=== PATIENT | female | born 1960 | race Caucasian/White ===

== ENCOUNTER 2017-07-21 18:40 | Emergency (ER) | payer OTHER ==
--- NOTE | 2017-07-21 19:09 | PDOC ---
History of Present Illness - General History Source: Patient Exam Limitations: No Limitations - History of Present Illness Initial Comments: 07/21/17 20:45 The patient is a 57 year old female, with no significant past medical history, who presents to the emergency department s/p mechanical fall, edema to the right foot. The patient reports sliding on a manhole and her right foot inverted. She reports she was able to ambulate post fall, however, with difficulty. She reports taking Advil and using ice on her injury. She denies recent fevers, chills, headache or dizziness. She denies recent nausea, vomit, diarrhea or constipation. She denies recent dysuria, frequency, urgency or hematuria. She denies recent chest pain or shortness of breath. Allergies: NKA <Tiara Cutler - Last Filed: 07/21/17 20:45> <Marlene Gomez - Last Filed: 07/22/17 03:33> - General Chief Complaint: Injury Stated Complaint: RIGHT ANKLE/FOOT PAIN Time Seen by Provider: 07/21/17 19:08 Past History <Tiara Cutler - Last Filed: 07/21/17 20:45> <Marlene Gomez - Last Filed: 07/22/17 03:33> - Past Medical History Allergies/Adverse Reactions: Allergies Allergy/AdvReac Type Severity Reaction Status Date / Time No Known Allergies Allergy Verified 07/21/17 18:58 Home Medications: Ambulatory Orders Fluoxetine HCl 40 mg PO DAILY 07/21/17 Folic Acid 1 mg PO DAILY 07/21/17 Ibuprofen [Advil -] 400 mg PO ONCE 07/21/17 Review of Systems - Review of Systems Able to Perform ROS?: Yes Comments:: 07/21/17 20:45 GENERAL/CONSTITUTIONAL: No fever or chills. No weakness. HEAD, EYES, EARS, NOSE AND THROAT: No change in vision. No ear pain or discharge. No sore throat. CARDIOVASCULAR: No chest pain or shortness of breath. RESPIRATORY: No cough, wheezing, or hemoptysis. GASTROINTESTINAL: No nausea, vomiting, diarrhea or constipation. GENITOURINARY: No dysuria, frequency, or change in urination. MUSCULOSKELETAL: +Right foot pain and edema. No joint swelling or pain. No neck or back pain. SKIN: No rash NEUROLOGIC: No headache, vertigo, loss of consciousness, or change in strength/ sensation. ENDOCRINE: No increased thirst. No abnormal weight change. HEMATOLOGIC/LYMPHATIC: No anemia, easy bleeding, or history of blood clots. ALLERGIC/IMMUNOLOGIC: No hives or skin allergy. All Other Systems: Reviewed and Negative <Tiara Cutler - Last Filed: 07/21/17 20:45> *Physical Exam - Vital Signs Last Vital Signs Temp Pulse Resp BP Pulse Ox 99.1 F 75 15 111/75 96 07/21/17 18:57 07/21/17 18:57 07/21/17 18:57 07/21/17 18:57 07/21/17 18:57 - Physical Exam Comments: 07/21/17 20:47 GENERAL: Awake, alert, and fully oriented, in no acute distress HEAD: No signs of trauma EYES: PERRLA, EOMI, sclera anicteric, conjunctiva clear ENT: Auricles normal inspection, hearing grossly normal, nares patent, oropharynx clear without exudates. Moist mucosa NECK: Normal ROM, supple, no lymphadenopathy, JVD, or masses LUNGS: Breath sounds equal, clear to auscultation bilaterally. No wheezes, and no crackles HEART: Regular rate and rhythm, normal S1 and S2, no murmurs, rubs or gallops ABDOMEN: Soft, nontender, normoactive bowel sounds. No guarding, no rebound. No masses EXTREMITIES: +Edema to the lateral aspect medial to the distal fibula. No clubbing or cyanosis. No cords or erythema. NEUROLOGICAL: Cranial nerves II through XII grossly intact. Normal speech, normal gait SKIN: Warm, Dry, normal turgor, no rashes or lesions noted. <Tiara Cutler - Last Filed: 07/21/17 20:45> ED Treatment Course - Medications Given in the ED: ED Medications Discontinued Medications Generic Name Dose Route Start Last Admin Trade Name Destiny PRN Reason Stop Dose Admin Ibuprofen 600 mg 07/21/17 19:56 07/21/17 20:15 Motrin - PO 07/21/17 19:57 600 mg ONCE ONE Administration <Tiara Cutler - Last Filed: 07/21/17 20:45> Medical Decision Making - Medical Decision Making 07/21/17 22:26 Patient Name: ANGIE ANDREWS THIS IS A PRELIMINARY REPORT FROM [facility] DATE OF SERVICE: 2017-07-21 19:30:30 IMAGES: 7 EXAM: Right ankle and right foot x-ray HISTORY: Injury COMPARISON: None. FINDINGS: No fracture or malalignment. Calcaneal enthesophyte. Mild arthritic changes of the ankle. The soft tissues are unremarkable. IMPRESSION: No acute finding ankle or foot. THIS DOCUMENT HAS BEEN ELECTRONICALLY SIGNED 07/22/17 03:30 P)t inverted her foot when she slid on a metal grate on the sidewalk in [place]. Hobbled here only after resting at home and analgesics earlier today didn't cure the pain. She has a hx of an old 5th metatarsal head fracture. Now she has pain medial and caudal to the old injury. Foot XR is normal and foot exam shows minimal swelling of the lateral foot. Home with lucila and buly dressing and cane. Pt doesn't want crutches. She will follow with Dr. Burrows as needed. <Marlene Gomez - Last Filed: 07/22/17 03:33> *DC/Admit/Observation/Transfer - Attestations Scribe Attestion: 07/21/17 20:49 Documentation prepared by Tiara Cutler, acting as medical education manager for Marlene Gomez MD. <Tiara Cutler - Last Filed: 07/21/17 20:45> - Discharge Dispostion Admit: No <Marlene Gomez - Last Filed: 07/22/17 03:33> Diagnosis at time of Disposition: Ankle sprain - Discharge Dispostion Disposition: HOME Condition at time of disposition: Stable - Referrals Referrals: Yahir Burrows MD [Staff Physician] - - Patient Instructions Printed Discharge Instructions: DI for Ankle Sprain - Post Discharge Activity Forms/Work/School Notes: Back to Work
[2017-07-21 19:11] VITALS: BP 111/75; PULSE 75; TEMP 99.1; BMI 24.2
[2017-07-21] MEDS ORDERED: IBUPROFEN 600 MG TABLET (FP) PO ONE ×2 (19:56→20:11)
== END 2017-07-21 20:36 | disposition home or self-care (01) ==
LOC: FER 18:40
DX: W01.0XXA Fall on same level from slipping, tripping and stumbling without subsequent striking against object, initial encounter (principal); Y93.89 Activity, other specified; Y92.410 Unspecified street and highway as the place of occurrence of the external cause
CPT/HCPCS: 73610-TC-RT-FY; 73630-TC-RT-FY; 99282-25